=== PATIENT | male | born 1990 | race Caucasian/White ===

== ENCOUNTER 2018-06-23 18:03 | Emergency (ER) | payer BC, OTHER ==
[2018-06-23] MEDS ORDERED: oxyCODONE 5 MG TABLET PO STA (18:33)
--- NOTE | 2018-06-23 18:35 | ED Physician Documentation ---
PD HPI MALE - Stated complaint Stated Complaint: MALE - Chief complaint Chief Complaint: Abd Pain - History obtained from History obtained from: Patient - History of Present Illness Timing - onset: Other (For the last 4 days he has had waxing and waning left testicular pain radiating to the left hip. [place] better to have a pillow between his legs. He had some relief with ibuprofen. He notes no swelling. He is in a monogamous relationship. No discharge or urinary complaints.) Review of Systems Constitutional: denies: Fever, Chills GI: denies: Abdominal Pain, Nausea, Vomiting : denies: Dysuria, Frequency, Hesitancy PD PAST MEDICAL HISTORY - Past Surgical History Past Surgical History: No - Present Medications Home Medications: Ambulatory Orders Medication Instructions Recorded Confirmed Doxycycline Hyclate 100 mg PO BID #20 capsule 06/23/18 Ibuprofen [Motrin] 600 mg PO TID 06/23/18 06/23/18 Oxycodone HCl/Acetaminophen 1 - 2 each PO Q6H PRN #10 tablet 06/23/18 [Percocet 5-325 mg Tablet] - Allergies Allergies/Adverse Reactions: Allergies Allergy/AdvReac Type Severity Reaction Status Date / Time No Known Drug Allergies Allergy Verified 06/23/18 18:16 - Social History Does the pt smoke?: No Smoking Status: Never smoker - Immunizations Immunizations are current?: No Immunizations: TDAP >10years/unknown PD ED PE NORMAL - Vitals Vital signs reviewed: Yes - General General: Alert and oriented X 3, No acute distress - Neck Neck: Supple, no meningeal sign, No bony TTP - Abdomen Abdomen: Soft, Non tender - Male Male : Other (Normal distended male genitalia with bilateral normal lie and normal cremaster reflex. The testicles are nontender but he is tender and has fullness of the left epididymis. There is no hernia mass.) - Back Back: No CVA TTP, No spinal TTP - Derm Derm: Normal color, Warm and dry Results - Vitals Vitals: Vital Signs - 24 hr 06/23/18 18:14 Temperature 36.4 C L Heart Rate 63 Respiratory 14 Rate Blood Pressure 154/75 H O2 Saturation 99 Oxygen O2 Source Room air - Labs Labs: Laboratory Tests 06/23/18 18:45 Urine Color YELLOW Urine Clarity CLEAR Urine pH 6.0 Ur Specific [place] >=1.030 H Urine Protein NEGATIVE Urine Glucose (UA) NEGATIVE Urine Ketones NEGATIVE Urine Occult Blood NEGATIVE Urine Nitrite NEGATIVE Urine Bilirubin NEGATIVE Urine Urobilinogen 0.2 (NORMAL) Ur Leukocyte Esterase NEGATIVE Ur Microscopic Review NOT INDICATED Urine Culture Comments NOT INDICATED - Rads (name of study) testicular sono Radiology: EMP read contemporaneously (normal) PD MEDICAL DECISION MAKING - ED course ED course: 27-year-old gentleman in a monogamous relationship presents with signs and symptoms consistent with epididymitis. His examination is inconsistent with torsion. His ultrasound is negative. Departure - Departure Disposition: Home, Self Care Clinical Impression: Acute epididymitis Condition: Good Record reviewed to determine appropriate education?: Yes Instructions: Epididymitis Dc Prescriptions: Doxycycline Hyclate 100 mg PO BID #20 capsule Oxycodone HCl/Acetaminophen [Percocet 5-325 mg Tablet] 1 - 2 each PO Q6H PRN #10 tablet PRN Reason: pain Comments: Call your doctor to arrange a follow-up appointment, make the next available appointment. In the interim, return anytime if worse or if new symptoms develop. Do not drink or drive while taking narcotic pain medication. Note that many narcotic pain relievers also contain Tylenol/acetaminophen. Please ensure that your total dose of acetaminophen from all sources does not exceed 3 g (3000 mg) per day. You may get constipated while on this medication. Take a stool softener such as Colace twice a day while you are on it. Also add an [id number] laxative such as senna or MiraLAX on any day that you do not have a bowel movement. If you received a narcotic pain medication or sedative while in the emergency department, do not drive for the next 24 hours. Your blood pressure was elevated today on check into the emergency department. This does not mean that you have hypertension, it is a common phenomenon to come to the emergency department and have elevated blood pressure. I recommend that you see your primary care physician within the week to have it rechecked when you are feeling better. Forms: Activity restrictions
[2018-06-23 19:05] LABS: BILIRUBIN,URINE NEGATIVE (NEGATIVE); GLUCOSE, URINE (UA) NEGATIVE (NEGATIVE); KETONES,URINE (UA) NEGATIVE (NEGATIVE); LEUKOCYTE ESTERASE, URINE NEGATIVE (NEGATIVE); NITRITE,URINE NEGATIVE (NEGATIVE); OCCULT BLOOD,URINE NEGATIVE (NEGATIVE); PROTEIN,URINE NEGATIVE (NEGATIVE); UROBILINOGEN,URINE 0.2 (NORMAL) E.U./dL (NORMAL)
[2018-06-23 19:12] LABS: CLARITY,URINE CLEAR (CLEAR)
--- NOTE | 2018-06-23 19:33 | Ultrasound Report ---
Reason: L testicle pain Procedure Date: 06/23/2018 Accession Number: [id number] / [id number] Procedure: US - Testicle w/Doppler CPT Code: FULL RESULT: EXAM: SCROTAL ULTRASOUND EXAM DATE: 06/23/2018 07:06 PM. CLINICAL HISTORY: L testicle pain. COMPARISON: None. TECHNIQUE: Real-time scanning was performed with static images obtained. Color-flow images were utilized. FINDINGS: Right: Testis: 4.5 x 2.8 x 2.2 cm. Normal size and echotexture. No mass, calcification, or abnormal blood flow. Epididymis: 2.1 x 0.6 cm. Normal size and echotexture. No mass or abnormal blood flow. Hydrocele: None. Varicocele: None. Left: Testis: 4.3 x 3.0 x 2.2 cm. Normal size and echotexture. No mass, calcification, or abnormal blood flow. Epididymis: 1.7 x 0.5 cm. Normal size and echotexture. No mass or abnormal blood flow. Hydrocele: None. Varicocele: None. IMPRESSION: No acute sonographic abnormalities. RADIA
[2018-06-23] MEDS ORDERED: DOXYCYCLINE 100 MG TABLET PO STA (20:14)
[2018-06-23 20:37] VITALS: BP 140/100
== END 2018-06-23 20:37 | disposition home or self-care (01) ==
LOC: ED 18:03
DX: N45.1 Epididymitis (principal); R03.0 Elevated blood-pressure reading, without diagnosis of hypertension
CPT/HCPCS: 76870; 81003; 87491; 87591; 93975; 99283; A9270; 81001; 87086

== ENCOUNTER 2020-01-28 15:03 | Emergency (ER) | payer OTHER ==
--- NOTE | 2020-01-28 15:35 | ED Physician Documentation ---
History of Present Illness - Stated complaint Stated Complaint: RT SIDE PX - Chief complaint Chief Complaint: Abd Pain - History obtained from History obtained from: Patient - Additonal information Additional information: 29-year-old male presents to the emergency department for evaluation of right upper quadrant abdominal pain that began intermittently about 1 month ago but over the course of the last week has become more progressive. He reports that he often has pain after eating on the right upper quadrant under the rib cage. He has vomited only once. He also reports that his urine looks darker than it normally does. He has had no fevers or weight loss. He denies bloody bowel movements but states that for a long time he has had loose or watery stools. He reports that he occasionally takes omeprazole for acid reflux but has not had those symptoms recently. Denies any history of hypertension or diabetes. Takes no other prescribed medications. No pertinent past surgical history. Pt denies ETOH excess Review of Systems Constitutional: denies: Fever, Chills, Weight Loss Nose: denies: Rhinorrhea / runny nose, Congestion Throat: denies: Dental pain / toothache, Oral lesions / sores, Sore throat Cardiac: denies: Chest pain / pressure, Palpitations Respiratory: denies: Dyspnea, Cough GI: reports: Abdominal Pain, Vomiting, Diarrhea. denies: Nausea, Constipation, Hematemesis, Bloody / black stool : denies: Dysuria, Frequency, Hesitancy, Other (dark urine) Skin: denies: Rash, Lesions Musculoskeletal: denies: Neck pain, Back pain Neurologic: denies: Generalized weakness, Focal weakness, Numbness PD PAST MEDICAL HISTORY - Past Surgical History Past Surgical History: No - Present Medications Home Medications: Ambulatory Orders Medication Instructions Recorded Confirmed Doxycycline Hyclate 100 mg PO BID #20 capsule 06/23/18 Ibuprofen [Motrin] 600 mg PO TID 06/23/18 06/23/18 Oxycodone HCl/Acetaminophen 1 - 2 each PO Q6H PRN #10 tablet 06/23/18 [Percocet 5-325 mg Tablet] - Allergies Allergies/Adverse Reactions: Allergies Allergy/AdvReac Type Severity Reaction Status Date / Time No Known Drug Allergies Allergy Verified 01/28/20 15:08 - Social History Does the pt smoke?: No Smoking Status: Never smoker Does the pt drink ETOH?: Yes Does the pt have substance abuse?: No - Immunizations Immunizations are current?: No Immunizations: TDAP >10years/unknown - POLST Patient has POLST: No PD ED PE NORMAL - General General: Alert and oriented X 3, No acute distress - Neck Neck: Supple, no meningeal sign, No adenopathy - Cardiac Cardiac: RRR, No murmur, No gallop, No rub - Respiratory Respiratory: No respiratory distress, Clear bilaterally - Abdomen Abdomen: Normal bowel sounds, Soft. No: Non tender (Mild right upper quadrant tenderness with deep palpation. Negative Perez's. No rebound or guarding.) - Back Back: No CVA TTP - Derm Derm: Normal color, Warm and dry, No rash - Extremities Extremities: No deformity Results - Vitals Vitals: Vital Signs - 24 hr 01/28/20 15:06 Temperature 36.8 C Heart Rate 67 Respiratory 16 Rate Blood Pressure 143/74 H O2 Saturation 100 Oxygen O2 Source Room air - Labs Labs: Laboratory Tests 01/28/20 01/28/20 01/28/20 15:33 15:33 15:42 WBC 5.9 RBC 4.95 Hgb 14.3 Hct 42.0 MCV 84.8 MCH 28.9 MCHC 34.0 RDW 12.2 Plt Count 237 MPV 10.4 Neut # (Auto) 2.0 Lymph # (Auto) 3.1 [place] # (Auto) 0.5 Eos # (Auto) 0.2 Baso # (Auto) 0.0 Absolute Nucleated RBC 0.00 Nucleated RBC % 0.0 Sodium 142 Potassium 3.9 Chloride 103 Carbon Dioxide 25 Anion Gap 14.0 H BUN 21 H Creatinine 0.9 Estimated GFR (MDRD) 99 Glucose 120 H Calcium 9.5 Total Bilirubin 0.5 AST 28 ALT 38 Alkaline Phosphatase 57 Total Protein 6.9 Albumin 4.4 Globulin 2.5 Albumin/Globulin Ratio 1.8 Lipase 26 Urine Color YELLOW Urine Clarity CLEAR Urine pH 6.5 Ur Specific [place] 1.025 Urine Protein NEGATIVE Urine Glucose (UA) NEGATIVE Urine Ketones NEGATIVE Urine Occult Blood NEGATIVE Urine Nitrite NEGATIVE Urine Bilirubin NEGATIVE Urine Urobilinogen 0.2 (NORMAL) Ur Leukocyte Esterase NEGATIVE Ur Microscopic Review NOT INDICATED Urine Culture Comments NOT INDICATED - Rads (name of study) Abd US Radiology: Final report received (No visualized gallbladder wall thickening or stones. Hepatomegaly and steatosis.) PD MEDICAL DECISION MAKING - ED course Complexity details: reviewed results, d/w patient, d/w family ED course: 29 year old male presents to the ED for evaluation of RUQ abdominal pain ongoing for one month. He reports that he often has pain after eating and in addition to this he reports that he frequently has diarrhea. - His labs are reviewed in full and there is no acute worrisome abnormalities. His liver function tests are normal. His kidney function is preserved. He has no leukocytosis. - An abdominal ultrasound was completed to evaluate for the possibility of cholelithiasis. No gallstones were seen. There was no common bile duct dilation. It should be noted however that he has a diffusely fatty liver for his age. I have discussed this at length with the patient. I have advised that he needs very close follow-up with his primary care doctor and likely referral to a rn eligibility for long-term evaluation and monitoring. We discussed that BARNES is the most common cause of cirrhosis in the [facility]. Departure - Departure Disposition: 01 Home, Self Care Clinical Impression: RUQ abdominal pain, Steatosis of liver Condition: Stable Instructions: ED Abdominal Pain Unkn Cause, NAFLD Comments: [place] your labs today are essentially normal. Your liver function tests are all normal. The ultrasound did not show any gallstones or findings of problems within the gallbladder. However you do have a diffusely fatty liver for your age. This is called hepatic steatosis. It is important that you schedule follow-up with your primary care doctor. In the long-term you should be referred to a rn eligibility for further evaluation and possible treatment. Please return to the emergency department if you develop suddenly severe or different develop abdominal pain. Return for fevers bloody stools or uncontrolled vomiting
[2020-01-28 15:39] LABS: BASOPHILS % (AUTO) 0.7 %; EOSINOPHILS # (AUTO) 0.2 10^3/uL (0.0-0.7); EOSINOPHILS % (AUTO) 3.2 %; HGB - HEMOGLOBIN 14.3 g/dL (14.0-18.0); LYMPHOCYTES # (AUTO) 3.1 10^3/uL (1.5-3.5); LYMPHOCYTES % (AUTO) 52.3 %; MEAN CORPUSCULAR HEMOGLOBIN 28.9 pg (27.0-31.0); MEAN CORPUSCULAR VOLUME 84.8 fL (80.0-94.0); MEAN PLATELET VOLUME 10.4 fL (7.4-11.4); MONOCYTES # (AUTO) 0.5 10^3/uL (0.0-1.0); MONOCYTES % (AUTO) 9.1 %; NEUTROPHILS % (AUTO) 34.5 %; PLT - PLATELET COUNT 237 10^3/uL (130-450); RED BLOOD COUNT 4.95 10^6/uL (4.70-6.10); RED CELL DISTRIBUTION WIDTH 12.2 % (12.0-15.0); WHITE BLOOD COUNT 5.9 x10^3/uL (4.8-10.8)
[2020-01-28 15:52] LABS: BILIRUBIN,URINE NEGATIVE (NEGATIVE); GLUCOSE, URINE (UA) NEGATIVE (NEGATIVE); KETONES,URINE (UA) NEGATIVE (NEGATIVE); LEUKOCYTE ESTERASE, URINE NEGATIVE (NEGATIVE); NITRITE,URINE NEGATIVE (NEGATIVE); OCCULT BLOOD,URINE NEGATIVE (NEGATIVE); PH,URINE 6.5 PH (5.0-7.5); PROTEIN,URINE NEGATIVE (NEGATIVE); UROBILINOGEN,URINE 0.2 (NORMAL) E.U./dL (NORMAL)
[2020-01-28 15:54] LABS: CLARITY,URINE CLEAR (CLEAR)
[2020-01-28 16:05] LABS: ALBUMIN 4.4 g/dL (3.2-5.5); ALBUMIN/GLOBULIN RATIO 1.8 (1.0-2.2); BILIRUBIN,TOTAL 0.5 mg/dL (0.2-1.0); CALCIUM 9.5 mg/dL (8.5-10.3); CREATININE 0.9 mg/dL (0.6-1.2); TOTAL PROTEIN 6.9 g/dL (6.7-8.2)
--- NOTE | 2020-01-28 16:45 | Ultrasound Report ---
PROCEDURE: Abdomen Limited INDICATIONS: RUQ abd pain; r/o edilberto TECHNIQUE: Real-time scanning was performed of the abdominal and retroperitoneal organs, with image documentatio n. COMPARISON: None. FINDINGS: Liver: Liver is enlarged with steatosis. It measures 19.2 cm. Gallbladder: Gallbladder demonstrates no stones. Gallbladder is partially contracted with wall thicke nola measuring 1.5 cm. No pericholecystic fluid. Biliary ducts: Intrahepatic bile ducts are non-dilated. Extrahepatic bile duct caliber measures 4 m m. Normal is 6-7 mm or less in diameter, or 10 mm or less post-cholecystectomy. Pancreas: Visualized portions of the pancreas are sonographically normal. Kidneys: Kidneys are normal in size and echotexture. Right kidney measures 12.1 cm long. No hydron ephrosis or nephrolithiasis. No solid masses. Aorta: Visualized aorta is normal in caliber at less than 3 cm. Iliacs: Proximal common iliac arteries are normal in caliber at less than 2.5 cm. IVC: Intrahepatic inferior vena cava is patent. IMPRESSION: 1. No visualized gallbladder wall thickening or stones. 2. Hepatomegaly steatosis. Reviewed by: Arabella Traore MD on 01/28/2020 4:44 PM PDT Approved by: Arabella Traore MD on 01/28/2020 4:44 PM PDT Station ID: [id number]
[2020-01-28 17:08] VITALS: BP 122/73
== END 2020-01-28 17:14 | disposition home or self-care (01) ==
LOC: ED 15:03
DX: R10.11 Right upper quadrant pain (principal); R11.10 Vomiting, unspecified; K76.0 Fatty (change of) liver, not elsewhere classified
CPT/HCPCS: 36415; 76705; 80053; 81001; 81003; 83690; 85025; 87086; 99284

== ENCOUNTER 2020-04-23 16:37 | Emergency (ER) | payer OTHER ==
--- NOTE | 2020-04-23 16:56 | ED Physician Documentation ---
PD HPI LOWER EXT INJURY - Stated complaint Stated Complaint: LT LEG INJURY - Chief complaint Chief Complaint: Ext Problem - History obtained from History obtained from: Patient - History of Present Illness PD HPI LOW EXT INJURY LOCATION: Left (Running on wet grass and fell inverting his left ankle with moderate pain. No other injuries. He is able to walk and bear weight.) Review of Systems Constitutional: reports: Reviewed and negative Throat: reports: Reviewed and negative Cardiac: reports: Reviewed and negative PD PAST MEDICAL HISTORY - Past Surgical History Past Surgical History: No - Present Medications Home Medications: Ambulatory Orders Medication Instructions Recorded Confirmed Doxycycline Hyclate 100 mg PO BID #20 capsule 06/23/18 Ibuprofen [Motrin] 600 mg PO TID 06/23/18 06/23/18 Oxycodone HCl/Acetaminophen 1 - 2 each PO Q6H PRN #10 tablet 06/23/18 [Percocet 5-325 mg Tablet] - Allergies Allergies/Adverse Reactions: Allergies Allergy/AdvReac Type Severity Reaction Status Date / Time No Known Drug Allergies Allergy Verified 04/23/20 16:43 - Social History Does the pt smoke?: No Smoking Status: Never smoker Does the pt drink ETOH?: Yes Does the pt have substance abuse?: No - Immunizations Immunizations are current?: No Immunizations: TDAP >10years/unknown - POLST Patient has POLST: No PD ED PE NORMAL - Vitals Vital signs reviewed: Yes - General General: Alert and oriented X 3, No acute distress - Extremities Extremities: Other (1 over the lateral malleolus of the left ankle, no medial malleolar tenderness. No proximal fibular tenderness. Foot is nontender.) - Neuro Neuro: Alert and oriented X 3, Normal speech Results - Vitals Vitals: Vital Signs - 24 hr 04/23/20 04/23/20 16:39 17:26 Temperature 36.5 C 36.8 C Heart Rate 87 79 Respiratory 16 16 Rate Blood Pressure 157/85 H 139/95 H O2 Saturation 97 97 Oxygen O2 Source Room air - Rads (name of study) L ankle XR Radiology: EMP read contemporaneously (no frx) Departure - Departure Disposition: 01 Home, Self Care Clinical Impression: Left ankle sprain Qualifiers: Encounter type: initial encounter Involved ligament of ankle: anterior talofibular ligament Qualified Code(s): S93.492A - Sprain of other ligament of left ankle, initial encounter Condition: Good Record reviewed to determine appropriate education?: Yes Instructions: ED Sprain Ankle Comments: Recheck with your MD in 1 week if not better. Forms: Activity restrictions Discharge Date/Time: 04/23/20 17:27
--- NOTE | 2020-04-23 17:10 | XRAY Report ---
PROCEDURE: Ankle 3 View LT INDICATIONS: fall, ankle pain TECHNIQUE: 3 views of the ankle were acquired. COMPARISON: None FINDINGS: Bones: No acute fractures or dislocations. Ankle mortise is normally aligned. No suspicious bony l esions. Soft tissues: There is soft tissue swelling overlying the lateral malleolus. Small anterior tibiotal ar joint effusion. Achilles tendon appears normal. IMPRESSION: Soft tissue swelling overlying the lateral malleolus and small anterior tibiotalar joint effusion. No underlying fracture or dislocation. If there is persistent clinical concern for a radiographically fracture, recommend immobilization and repeat imaging in 10 to 14 days. Reviewed by: Oli Villalba MD on 04/23/2020 4:09 PM [facility] Approved by: Oli Villalba MD on 04/23/2020 4:09 PM [facility] Station ID: [id number]
[2020-04-23 17:27] VITALS: BP 139/95
== END 2020-04-23 17:27 | disposition home or self-care (01) ==
LOC: ED 16:37
DX: S93.492A Sprain of other ligament of left ankle, initial encounter (principal); W01.0XXA Fall on same level from slipping, tripping and stumbling without subsequent striking against object, initial encounter; Y93.02 Activity, running
CPT/HCPCS: 99282; 99283

== ENCOUNTER 2020-06-09 18:24 | Outpatient (CLI) | payer OTHER | END 2020-06-09 18:25 | disposition home or self-care (01) | LOC: COV 18:24 | PROVIDERS: ATTEND Surgery | DX: Z01.812 Encounter for preprocedural laboratory examination (principal); K21.9 Gastro-esophageal reflux disease without esophagitis; R19.7 Diarrhea, unspecified; Z20.828 Contact with and (suspected) exposure to other viral communicable diseases ==

== ENCOUNTER 2020-06-16 06:17 | Day surgery (SDC) | payer OTHER ==
[2020-06-16] MEDS ORDERED: KETAMINE 500 MG/10 ML VIAL IVP ONE (06:18)
[2020-06-16] MEDS ORDERED: LACTATED RINGERS 1,000 ML IV ONE ×2 (06:58→09:39)
[2020-06-16] MEDS ORDERED: LIDO GARGLE 30 ML BOTTLE ONE ×2 (07:10→08:48)
--- NOTE | 2020-06-16 08:00 | ANESTHESIA ---
Pre-Anesthesia VS, & Labs - Diagnosis Gerd. Colonoscopy Screen - Procedure EGD, Colonoscopy Vital Signs: Temp Pulse Resp BP Pulse Ox 36.4 C L 85 6 L 136/71 H 97 06/16/20 06:40 06/16/20 06:40 06/16/20 06:40 06/16/20 06:40 06/16/20 06:40 Height: 5 ft 11 in Weight (kg): 102.4 kg Body Mass Index: 31.4 BMI Classification: Obese - NPO >8 hours Home Medications and Allergies Home Medications: Ambulatory Orders Omeprazole 40 mg PO BID 06/15/20 Omeprazole 40 mg PO BID 06/15/20 Allergies/Adverse Reactions: Allergies Allergy/AdvReac Type Severity Reaction Status Date / Time No Known Drug Allergies Allergy Verified 04/23/20 16:43 Anes History & Medical History - Anesthetic History Anesthesia Complications: reports: No previous complications (Never had anesthesia) Family history of Anesthesia Complications: Denies - Medical History Cardiovascular: reports: None Pulmonary: reports: Sleep apnea (Snores and describes KAROLYN sx. Encouraged to get sleep study.) Gastrointestinal: reports: GERD, Chronic diarrhea, Other Urinary: reports: None Neuro: reports: None Musculoskeletal: reports: None Endocrine/Autoimmune: reports: None Skin: reports: None Smoking Status: Never smoker Psychosocial: reports: Anxiety (Anxiety about health issues.), Alcohol (H/O heavy drinking 6 years ago. Now only occasionally.) History of Cancer?: No - Surgical History Dermatologic: Debridement Exam General: Alert, Oriented x3, Cooperative, No acute distress Dental: WNL Mouth Opening: Greater than 4 Fingerbreadths Neck Mobility: Normal Mallampati classification: I Thyromental Distance: 4-6 cm Respiratory: Lungs clear Cardiovascular: Regular rate, Normal S1, Normal S2, No murmurs Plan Anesthesia Type: MAC Consent for Procedure(s) Verified and Reviewed: Yes Code Status: Attempt Resuscitation ASA classification: 2-Mild systemic disease Is this case an emergency?: No (Discussed anesthesia, consent signed.)
[2020-06-16] MEDS ORDERED: LIDO GARGLE 30 ML BOTTLE PO ONE (08:40)
[2020-06-16] MEDS ORDERED: MIDAZOLAM 2 MG/2 ML VIAL ONE (08:52)
[2020-06-16] MEDS ORDERED: PROPOFOL 200 MG/20 ML VIAL IVP ONE ×2 (08:53)
[2020-06-16] MEDS ORDERED: LIDOCAINE-MPF 2% 5 ML VIAL ONE (08:55)
[2020-06-16] MEDS ORDERED: BENZOCAINE/TETRACAINE/BUTAMBEN 20 GM TOP ONE (08:55)
[2020-06-16] MEDS ORDERED: GLYCOPYRROLATE 1 MG/5 ML VIAL ONE (09:30)
[2020-06-16 10:09] VITALS: BP 126/82
--- NOTE | 2020-06-16 10:39 | ANESTHESIA POST OP EVALUATION ---
Anesthesia Post Eval - Post Anesthesia Eval Vitals: Last Vital Signs Temp 36.3 C L 06/16/20 09:50 Pulse 87 06/16/20 10:00 Resp 4 L 06/16/20 10:00 BP 126/82 H 06/16/20 10:00 Pulse Ox 97 06/16/20 10:00 CV Function Including HR & BP: positive: Stable Pain Control: positive: Satisfactory Nausea & Vomiting: positive: Negative Mental Status: positive: Baseline Respiratory Status: Airway Patent Hydration Status: Satisfactory Anesthesia Complications: positive: None
== END 2020-06-16 06:18 | disposition home or self-care (01) ==
LOC: SDS 06:17
PROVIDERS: ATTEND Surgery
PROC: 0DB68ZX Excision of Stomach, Via Natural or Artificial Opening Endoscopic, Diagnostic (ICD-10-PCS; 2020-06-16)
PROC: 0DB58ZX Excision of Esophagus, Via Natural or Artificial Opening Endoscopic, Diagnostic (ICD-10-PCS; 2020-06-16)
PROC: 0DB48ZX Excision of Esophagogastric Junction, Via Natural or Artificial Opening Endoscopic, Diagnostic (ICD-10-PCS; 2020-06-16)
PROC: 0DBE8ZX Excision of Large Intestine, Via Natural or Artificial Opening Endoscopic, Diagnostic (ICD-10-PCS; 2020-06-16)
PROC: 0DB98ZX Excision of Duodenum, Via Natural or Artificial Opening Endoscopic, Diagnostic (ICD-10-PCS; principal; 2020-06-16 08:30)
PROC: 0DB78ZX Excision of Stomach, Pylorus, Via Natural or Artificial Opening Endoscopic, Diagnostic (ICD-10-PCS; 2020-06-16 08:30)
DX: K21.9 Gastro-esophageal reflux disease without esophagitis (principal); K52.9 Noninfective gastroenteritis and colitis, unspecified; K29.70 Gastritis, unspecified, without bleeding; R10.13 Epigastric pain; E66.9 Obesity, unspecified; Z68.31 Body mass index [BMI] 31.0-31.9, adult; G47.30 Sleep apnea, unspecified
CPT/HCPCS: 43239; 45380; 81599; 83630; 87015; 87177; 87209; 87272; 87329; 87493; A9270; J7120; 87045; 87046; 87427; 88305

== ENCOUNTER 2022-07-24 16:45 | Outpatient (CLI) | payer OTHER | END 2022-07-24 17:15 | disposition home or self-care (01) | LOC: LAB.N 16:45 | PROVIDERS: ATTEND Registered Nurse | DX: Z11.1 Encounter for screening for respiratory tuberculosis (principal) | CPT/HCPCS: 81599; 86480 ==